=== PATIENT | female | born 1950 | race Caucasian/White ===

== ENCOUNTER → 2017-09-24 12:45 | Outpatient (CLI) | payer MEDICARE, OTHER, SELFPAY | PROVIDERS: Family Provider Family Medicine; PCP Family Medicine; Visit Provider Physician Assistant | DX: R30.0 Dysuria (principal) | CPT/HCPCS: 87086 ==

== ENCOUNTER → 2018-07-11 08:26 | Outpatient (CLI) | payer MEDICARE, OTHER, SELFPAY ==
[2018-07-11 09:49] LABS: Add Manual Diff / Slide Review NO; Basophils Absolute Auto 100 /uL (0-100); Basophils Percent Auto 0.8 % (0-2); Eosinophils Absolute Auto 200 /uL (0-450); Eosinophils Percent Auto 3.4 % (2-4); Hematocrit 42.4 % (36-46); Hemoglobin 14.3 g/dL (12.0-16.0); Lymphocytes Absolute Auto 2100 /uL (1100-4500); Lymphocytes Percent Auto 31.5 % (25-40); Mean Corpuscular HGB Conc 33.8 % (30-36); Mean Corpuscular Hemoglobin 30.6 PG (26-34); Mean Corpuscular Volume 90.4 fL (80-100); Monocytes Absolute Auto 400 /uL (0-900); Monocytes Percent Auto 5.7 % (3-14); Neutrophils Absolute Auto 3900 /uL (1500-7000); Neutrophils Percent Auto 58.6 % (50-75); Platelet Count 243 X10^3/uL (150-400); Red Blood Cell Count 4.69 X10^6/uL (4.0-5.2); Red Cell Distribution Width 14.2 % (11.6-14.8); White Blood Cell Count 6.6 X10^3/uL (4.5-11.0)
[2018-07-11 11:14] LABS: Alanine Aminotransferase 35 IU/L (9-52); Albumin 4.4 g/dL (3.5-5.0); Albumin Globulin Ratio 1.4 (1.0-2.8); Alkaline Phosphatase 67 U/L (38-126); Aspartate Aminotransferase 33 IU/L (14-36); BUN Creatinine Ratio 13.3 (6-22); Bilirubin Total 0.6 mg/dL (0.2-1.3); Blood Urea Nitrogen 12 mg/dL (7-17); Calcium 9.4 mg/dL (8.4-10.2); Carbon Dioxide 27 mmol/L (22-32); Chloride 105 mmol/L (98-107); Cholesterol 230 mg/dL (140-199); Estimated Glomerular Filt Rate > 60.0 mL/min (>60); Globulin 3.1 g/dL (1.7-4.1); Glucose 93 mg/dL (80-110); HDL Cholesterol 65 mg/dL (40-60); HEMOLYSIS < 15 (0-50); LDL Cholesterol Calculated 149 mg/dL (<100); Potassium 4.9 mmol/L (3.4-5.1); Sodium 138 mmol/L (137-145); Total Protein 7.5 g/dL (6.3-8.2); Triglycerides 78 mg/dL (35-150)
[2018-07-11 12:26] LABS: TSH w/ Reflex to FT4 2.04 uIU/mL (0.47-4.68)
== END ==
PROVIDERS: Family Provider Family Medicine; PCP Family Medicine; Visit Provider Family Medicine
DX: Z13.220 Encounter for screening for lipoid disorders (principal); E03.9 Hypothyroidism, unspecified; I10 Essential (primary) hypertension
CPT/HCPCS: 36415; 80053; 80061; 84443; 85025

== ENCOUNTER → 2018-08-07 13:56 | Outpatient (CLI) | payer MEDICARE, OTHER, SELFPAY ==
--- NOTE | 2018-08-07 13:58 | DI.MG.S_ITS ---
BILATERAL DIGITAL SCREENING MAMMOGRAM 3D/2D WITH CAD: 08/07/2018 CLINICAL: Routine screening. Comparison is made to exams dated: 03/05/2016 mammogram, 01/18/2011 mammogram, and 01/18/2011 [facility]. The tissue of both breasts is predominantly fatty. Current study was also evaluated with a Computer Aided Detection (CAD) system. No significant masses, calcifications, or other findings are seen in either breast. There has been no significant interval change. IMPRESSION: NEGATIVE There is no mammographic evidence of malignancy. A 1 year screening mammogram is recommended. This exam was interpreted at Station ID: [id number]. NOTE: For mammograms, a report in lay terms will be sent to the patient. Approximately 15% of breast malignancies will not be visualized mammographically. In the management of a palpable breast mass, a negative mammogram must not discourage biopsy of a clinically suspicious lesion. Electronically Signed By: Delfin mclean/melody:08/07/2018 16:53:08 letter sent: Normal Exam ACR BI-RADS Category 1: Negative 3341F
== END ==
PROVIDERS: Family Provider Family Medicine; PCP Family Medicine; Visit Provider Family Medicine
DX: Z12.31 Encounter for screening mammogram for malignant neoplasm of breast (principal); Z13.820 Encounter for screening for osteoporosis; M85.88 Other specified disorders of bone density and structure, other site; Z78.0 Asymptomatic menopausal state; Z90.722 Acquired absence of ovaries, bilateral
CPT/HCPCS: 77063; 77067; 77080

== ENCOUNTER → 2019-11-14 11:01 | Outpatient (CLI) | payer MEDICARE, OTHER, SELFPAY ==
[2019-11-14 12:25] LABS: Add Manual Diff / Slide Review NO; Basophils Absolute Auto 100 /uL (0-100); Basophils Percent Auto 0.5 % (0-2); Eosinophils Absolute Auto 100 /uL (0-450); Eosinophils Percent Auto 0.5 % (2-4); Hematocrit 44.3 % (36-46); Lymphocytes Absolute Auto 1100 /uL (1100-4500); Lymphocytes Percent Auto 10.9 % (25-40); Mean Corpuscular HGB Conc 33.8 % (30-36); Mean Corpuscular Hemoglobin 30.8 PG (26-34); Mean Corpuscular Volume 91.2 fL (80-100); Monocytes Absolute Auto 500 /uL (0-900); Monocytes Percent Auto 5.3 % (3-14); Neutrophils Absolute Auto 8500 /uL (1500-7000); Neutrophils Percent Auto 82.8 % (50-75); Platelet Count 244 X10^3/uL (150-400); Red Blood Cell Count 4.85 X10^6/uL (4.0-5.2); Red Cell Distribution Width 13.4 % (11.6-14.8); White Blood Cell Count 10.2 X10^3/uL (4.5-11.0)
[2019-11-14 13:06] LABS: Alanine Aminotransferase 81 IU/L (<35); Albumin 4.7 g/dL (3.5-5.0); Albumin Globulin Ratio 1.5 (1.0-2.8); Alkaline Phosphatase 86 U/L (38-126); Aspartate Aminotransferase 61 IU/L (14-36); BUN Creatinine Ratio 15.2 (6-22); Bilirubin Total 0.4 mg/dL (0.2-1.3); Blood Urea Nitrogen 12 mg/dL (7-17); Calcium 10.3 mg/dL (8.4-10.2); Carbon Dioxide 28 mmol/L (22-32); Chloride 106 mmol/L (98-107); Cholesterol 241 mg/dL (140-199); Estimated Glomerular Filt Rate > 60.0 mL/min (>60); Globulin 3.1 g/dL (1.7-4.1); Glucose 88 mg/dL (80-110); HDL Cholesterol 71 mg/dL (40-60); HEMOLYSIS < 15 (0-50); LDL Cholesterol Calculated 128 mg/dL (<100); Potassium 4.8 mmol/L (3.4-5.1); Sodium 141 mmol/L (137-145); Total Protein 7.8 g/dL (6.3-8.2); Triglycerides 209 mg/dL (35-150)
[2019-11-14 13:36] LABS: TSH w/ Reflex to FT4 1.32 uIU/mL (0.47-4.68)
== END ==
PROVIDERS: Family Provider Family Medicine; PCP Family Medicine; Referring Provider Family Medicine; Visit Provider Family Medicine
DX: R00.0 Tachycardia, unspecified (principal)
CPT/HCPCS: 36415; 80053; 80061; 84443; 85025

== ENCOUNTER → 2019-12-05 08:42 | Outpatient (CLI) | payer MEDICARE, OTHER, SELFPAY ==
--- NOTE | 2019-12-20 11:08 | P.HOLT.S_ITS ---
Wildfire Prevention Specialist Report Referral & Results Date Patient Seen: 12/05/19 Requesting provider: Rocco Venegas Indication: Tachycardia Duration of monitoring (days): 7 Diary information: There were 3 patient triggered events and 3 patient diary entries All 6 of these events were associated only with sinus rhythm (within 45 seconds) Data: Minimum heart rate identified was 50 beats per minute at 05:58 on 12/08/2019 Maximum sinus heart rate was 118 beats per minute at 11:43 on 12/06/2019 Maximum overall heart rate was 141 beats per minute at 05:27 on 12/08/2019 during a 37.2nd run of SVT/atrial tachycardia. Less than 1% of identified beats or either ventricular or supraventricular ectopic in origin Patient had only the 1 run of SVT/atrial tachycardia Impression: Relatively unremarkable 7 day cardiac/vascular sonographer. 1 run of accelerated supraventricular rhythm as above. Clinical correlation suggested
== END ==
PROVIDERS: Family Provider Family Medicine; PCP Family Medicine; Referring Provider Family Medicine; Visit Provider Family Medicine
DX: R00.0 Tachycardia, unspecified (principal)
CPT/HCPCS: 0296T; 0298T

== ENCOUNTER → 2020-07-22 11:28 | Outpatient (CLI) | payer MEDICARE, OTHER, SELFPAY | PROVIDERS: Family Provider Family Medicine; PCP Family Medicine; Visit Provider Physician Assistant | DX: N39.0 Urinary tract infection, site not specified (principal) | CPT/HCPCS: 87086 ==

== ENCOUNTER → 2020-07-25 08:41 | Outpatient (CLI) | payer MEDICARE, OTHER, SELFPAY ==
[2020-07-25 10:30] LABS: Alanine Aminotransferase 122 IU/L (<35); Albumin 4.5 g/dL (3.5-5.0); Albumin Globulin Ratio 1.6 (1.0-2.8); Alkaline Phosphatase 81 U/L (38-126); Aspartate Aminotransferase 94 IU/L (14-36); Bilirubin Total 0.4 mg/dL (0.2-1.3); Bilirubin Unconjugated 0.5 mg/dL (0.0-1.1); Cholesterol 234 mg/dL (140-199); Globulin 2.8 g/dL (1.7-4.1); HDL Cholesterol 59 mg/dL (40-60); HEMOLYSIS < 15 (0-50); LDL Cholesterol Calculated 147 mg/dL (<100); Total Protein 7.3 g/dL (6.3-8.2); Triglycerides 142 mg/dL (35-150)
== END ==
PROVIDERS: Family Provider Family Medicine; PCP Family Medicine; Referring Provider Family Medicine; Visit Provider Family Medicine
DX: E78.5 Hyperlipidemia, unspecified (principal); I10 Essential (primary) hypertension
CPT/HCPCS: 36415; 80061; 80076

== ENCOUNTER → 2020-08-01 08:38 | Outpatient (CLI) | payer MEDICARE, OTHER, SELFPAY ==
--- NOTE | 2020-08-01 09:08 | DI.US.S_ITS ---
PROCEDURE: US ABDOMEN COMPLETE INDICATIONS: ELEVATED LIVER FUNCTION TESTS TECHNIQUE: Real-time scanning was performed of the abdominal and retroperitoneal organs, with image documentation. COMPARISON: [facility], CT, ABDOMEN/PELVIS WITH CONTRAST, 02/28/2007, 10:15. [facility], US, ABDOMEN COMPLETE, 04/18/2014, 8:36. FINDINGS: Liver: Liver is normal in size and demonstrates a simple cyst measuring 7 mm on the right anteriorly. Gallbladder: Removed. Biliary ducts: Not well seen. Pancreas: Visualized portions of the pancreas are sonographically normal. Spleen: Spleen is normal in size and homogeneous in echotexture. Kidneys: Kidneys are normal in size and echotexture. Right kidney measures 11.7 cm long; left kidney measures 10.4 cm long. No hydronephrosis or nephrolithiasis. No solid masses. Left cortical thinning is noted. Within the left mid kidney, there is a 1 cm simple cyst. Areas of heterogeneity can be seen within the left kidney, without john masses or shadowing stones. Aorta: Visualized aorta is normal in caliber at less than 3 cm. Iliacs: Proximal common iliac arteries are normal in caliber at less than 2.5 cm. IVC: Intrahepatic inferior vena cava is patent. Miscellaneous: No free abdominal fluid. IMPRESSION: Liver within normal limits, with note made of a 7 mm simple cyst. Status post cholecystectomy. The biliary ducts are not well seen on this study. Left kidney cortical thinning can be seen. A 1 cm left kidney cyst can be seen. Dictated by: Chin Layne M.D. on 08/01/2020 at 10:29 Approved by: Chin Layne M.D. on 08/01/2020 at 10:33
[2020-08-01 10:20] LABS: Erythrocyte Sedimentation Rate 9 MM/HR (0-20)
[2020-08-01 10:38] LABS: C-Reactive Protein Quant 0.8 mg/dL (<1.0)
[2020-08-01 11:07] LABS: TSH w/ Reflex to FT4 1.36 uIU/mL (0.47-4.68)
[2020-08-01 11:11] LABS: Ferritin 57 ng/mL (11-264)
[2020-08-01 11:30] LABS: Appearance Urine UA CLEAR; Bacteria Urine None Seen; Bilirubin Urine UA NEGATIVE (NEGATIVE); Color Urine UA YELLOW; Glucose Urine UA NEGATIVE (Negative); Ketones Urine UA NEGATIVE (NEGATIVE); Leukocyte Esterase Urine UA TRACE (NEGATIVE); Nitrite Urine UA NEGATIVE (Negative); Occult Blood Urine UA 2+ (Negative); Protein Urine UA NEGATIVE (Negative); Urobilinogen Urine UA 0.2 E.U./dL (0.2); WBC Urine None Seen (0-5/HPF); pH Urine UA 5.5 (4.5-8.0)
[2020-08-01 11:36] LABS: Culture Indicated Urine Cult Not Indicated; RBC Urine 1-5/HPF (0-5/HPF)
== END ==
PROVIDERS: Family Provider Family Medicine; PCP Family Medicine; Referring Provider Family Medicine; Visit Provider Family Medicine
DX: R79.89 Other specified abnormal findings of blood chemistry (principal); R30.0 Dysuria; K76.89 Other specified diseases of liver; N28.1 Cyst of kidney, acquired; Z90.49 Acquired absence of other specified parts of digestive tract
CPT/HCPCS: 36415; 76700; 81003; 81015; 82728; 84443; 85651; 86140

== ENCOUNTER → 2021-03-31 10:07 | Outpatient (CLI) | payer MEDICARE, OTHER, SELFPAY ==
[2021-03-31 11:07] LABS: COVID19 -Nasal RAPID Negative (Negative)
== END ==
PROVIDERS: Family Provider Family Medicine; PCP Family Medicine; Visit Provider Physician Assistant
DX: Z20.822 Contact with and (suspected) exposure to COVID-19 (principal)
CPT/HCPCS: 87635

== ENCOUNTER → 2021-04-27 09:20 | Outpatient (CLI) | payer MEDICARE, OTHER, SELFPAY ==
--- NOTE | 2021-04-27 09:23 | DI.MG.S_ITS ---
BILATERAL DIGITAL SCREENING MAMMOGRAM 3D/2D WITH CAD: 04/27/2021 CLINICAL: Routine screening. Comparison is made to exams dated: 08/07/2018 mammogram, 03/05/2016 mammogram, and 01/18/2011 mammogram - [facility]. The tissue of both breasts is predominantly fatty. Current study was also evaluated with a Computer Aided Detection (CAD) system. No significant masses, calcifications, or other findings are seen in either breast. There has been no significant interval change. IMPRESSION: NEGATIVE There is no mammographic evidence of malignancy. A 1 year screening mammogram is recommended. This exam was interpreted at Station ID: [id number]. NOTE: For mammograms, a report in lay terms will be sent to the patient. Approximately 15% of breast malignancies will not be visualized mammographically. In the management of a palpable breast mass, a negative mammogram must not discourage biopsy of a clinically suspicious lesion. Electronically Signed By: Delfin mclean/melody:04/27/2021 10:52:12 letter sent: Normal Exam ACR BI-RADS Category 1: Negative 3341F
== END ==
PROVIDERS: Family Provider Family Medicine; PCP Family Medicine; Referring Provider Family Medicine; Visit Provider Family Medicine
DX: Z12.31 Encounter for screening mammogram for malignant neoplasm of breast (principal)
CPT/HCPCS: 77063; 77067

== ENCOUNTER → 2021-09-16 07:12 | Outpatient (CLI) | payer MEDICARE, OTHER, SELFPAY ==
[2021-09-16 07:54] LABS: Add Manual Diff / Slide Review NO; Basophils Absolute Auto 100 /uL (0-100); Basophils Percent Auto 0.9 % (0-2); Eosinophils Absolute Auto 100 /uL (0-450); Eosinophils Percent Auto 1.7 % (2-4); Hematocrit 40.8 % (36-46); Hemoglobin 13.9 g/dL (12.0-16.0); Lymphocytes Absolute Auto 2600 /uL (1100-4500); Lymphocytes Percent Auto 32.7 % (25-40); Mean Corpuscular Hemoglobin 28.9 PG (26-34); Mean Corpuscular Volume 85.2 fL (80-100); Monocytes Absolute Auto 500 /uL (0-900); Monocytes Percent Auto 5.7 % (3-14); Neutrophils Absolute Auto 4700 /uL (1500-7000); Platelet Count 236 X10^3/uL (150-400); Red Blood Cell Count 4.79 X10^6/uL (4.0-5.2); Red Cell Distribution Width 13.8 % (11.6-14.8); White Blood Cell Count 7.9 X10^3/uL (4.5-11.0)
[2021-09-16 08:25] LABS: HEMOLYSIS < 15 (0-50); Iron 74 ug/dL (37-170)
[2021-09-16 08:29] LABS: Alanine Aminotransferase 27 IU/L (<35); Albumin 4.2 g/dL (3.5-5.0); Albumin Globulin Ratio 1.4 (1.0-2.8); Alkaline Phosphatase 79 U/L (38-126); Aspartate Aminotransferase 26 IU/L (14-36); BUN Creatinine Ratio 19.1 (6-22); Bilirubin Total 0.5 mg/dL (0.2-1.3); Blood Urea Nitrogen 17 mg/dL (7-17); Calcium 9.2 mg/dL (8.4-10.2); Carbon Dioxide 28 mmol/L (22-32); Chloride 104 mmol/L (98-107); Cholesterol 230 mg/dL (140-199); Estimated Glomerular Filt Rate > 60 mL/min (>60); Globulin 2.9 g/dL (1.7-4.1); Glucose 102 mg/dL (80-110); HDL Cholesterol 55 mg/dL (40-60); HEMOLYSIS < 15 (0-50); LDL Cholesterol Calculated 149 mg/dL (<100); Potassium 4.6 mmol/L (3.4-5.1); Sodium 138 mmol/L (137-145); Total Protein 7.1 g/dL (6.3-8.2); Triglycerides 131 mg/dL (35-150)
[2021-09-16 08:36] LABS: Percent Iron Saturation 24 % (15-50); Total Iron Binding Capacity 312 ug/dL (265-497); Transferrin 237 mg/dL (206-381)
[2021-09-16 08:57] LABS: TSH w/ Reflex to FT4 2.97 uIU/mL (0.47-4.68)
[2021-09-16 09:02] LABS: Ferritin 63 ng/mL (11-264)
[2021-09-16 09:16] LABS: Vitamin B12 755 pg/mL (239-931)
[2021-09-16 09:23] LABS: Follicle Stimulating Hormone 69.7 mIU/mL; Luteinizing Hormone 29.3 mIU/mL; Progesterone, Total 0.97 ng/mL
[2021-09-16 10:05] LABS: Creatinine Urine Random 130.6 mg/dL; Microalbumi Creatinin Ratio Ur 5.3 ug/mg CR (<30); Microalbumin Urine Random 0.7 mg/dL (0-1.6)
[2021-09-19 16:41] LABS: Estrogen 144 pg/mL (40-244)
== END ==
PROVIDERS: Family Provider Family Medicine; PCP Family Medicine; Referring Provider Physician Assistant; Visit Provider Physician Assistant
DX: E89.40 Asymptomatic postprocedural ovarian failure (principal); R53.83 Other fatigue; I10 Essential (primary) hypertension; R23.2 Flushing; R61 Generalized hyperhidrosis; E78.2 Mixed hyperlipidemia
CPT/HCPCS: 36415; 80053; 80061; 82043; 82570; 82607; 82672; 82728; 83001; 83002; 83540; 83550; 84144; 84443; 85025

== ENCOUNTER → 2021-10-29 09:27 | Outpatient (CLI) | payer MEDICARE, OTHER, SELFPAY ==
[2021-10-29 13:37] LABS: Appearance Urine UA CLEAR; Bilirubin Urine UA NEGATIVE (NEGATIVE); Color Urine UA YELLOW; Glucose Urine UA NEGATIVE (Negative); Ketones Urine UA NEGATIVE (NEGATIVE); Leukocyte Esterase Urine UA TRACE (NEGATIVE); Nitrite Urine UA NEGATIVE (Negative); Occult Blood Urine UA 1+ (Negative); Protein Urine UA NEGATIVE (Negative); Specific Gravity Urine UA <=1.005 (1.000-1.035); Urobilinogen Urine UA 0.2 E.U./dL (0.2)
[2021-10-29 14:03] LABS: Bacteria Urine Few (2-10); RBC Urine 0-1/HPF (0-5/HPF); Squamous Epithelial Cell Urine 1-5 /HPF (0-5/HPF); WBC Urine 1-5/HPF (0-5/HPF)
[2021-10-29 14:04] LABS: Culture Indicated Urine Specimen Cultured
== END ==
PROVIDERS: Family Provider Family Medicine; PCP Family Medicine; Visit Provider Physician Assistant
DX: R31.9 Hematuria, unspecified (principal)
CPT/HCPCS: 81001; 87086

== ENCOUNTER → 2021-11-09 13:45 | Outpatient (CLI) | payer MEDICARE, OTHER, SELFPAY ==
--- NOTE | 2021-11-23 17:10 | PM.CARDMON.1 ---
Linen Room Attendant Report Referral & Results Date Patient Seen: 11/09/21 Requesting provider: Geovanna Smith Indication: Palpitations Duration of monitoring (days): 7 Diary information: There were 6 patient triggered events and 4 patient diary entries Patient diary entries were associated with sinus rhythm only Patient triggered events were associated with within 45 seconds) sinus rhythm as well as PACs and PVCs Data: Minimum heart rate identified was 41 beats per minute at 05:10 on 11/16/2021 Maximum heart rate identified was 102 beats per minute at 14:20 on 11/13/2021 Less than 1% of identified beats were ventricular or supraventricular ectopic in origin, which would classify them as rare. There were no pauses of 3 seconds or longer, episodes of atrial fibrillation or SVT identified on this study Impression: Essentially normal 6+ day cardiac specialist demonstrating rare PACs and PVCs No clear correlation between patient reported symptoms in any one dysrhythmia Clinical correlation suggested
== END ==
PROVIDERS: Family Provider Family Medicine; PCP Family Medicine; Referring Provider Physician Assistant; Visit Provider Physician Assistant
DX: R00.2 Palpitations (principal)
CPT/HCPCS: 93242; 93244

== ENCOUNTER → 2022-03-23 11:07 | Outpatient (CLI) | payer MEDICARE, OTHER, SELFPAY | PROVIDERS: Family Provider Family Medicine; PCP Family Medicine; Visit Provider Physician Assistant Medical | DX: J02.9 Acute pharyngitis, unspecified (principal) | CPT/HCPCS: 87070 ==

== ENCOUNTER → 2022-04-08 08:22 | Outpatient (CLI) | payer MEDICARE, OTHER, SELFPAY ==
[2022-04-08 10:42] LABS: Cholesterol 156 mg/dL (140-199); HDL Cholesterol 56 mg/dL (40-60); LDL Cholesterol Calculated 86 mg/dL (<100); Triglycerides 72 mg/dL (35-150)
== END ==
PROVIDERS: Family Provider Family Medicine; PCP Family Medicine; Referring Provider Physician Assistant; Visit Provider Physician Assistant
DX: E78.2 Mixed hyperlipidemia (principal)
CPT/HCPCS: 36415; 80061

== ENCOUNTER → 2022-10-20 11:06 | Outpatient (CLI) | payer MEDICARE, OTHER, SELFPAY ==
--- NOTE | 2022-10-20 | DI.MG.S_ITS ---
BILATERAL DIGITAL SCREENING MAMMOGRAM 3D/2D WITH CAD: 10/20/2022 CLINICAL: Routine screening. Comparison is made to exams dated: 04/27/2021 mammogram, 08/07/2018 mammogram, and 03/05/2016 mammogram - [facility]. Both breasts are almost entirely fatty (category a/<25% glandular tissue). Current study was also evaluated with a Computer Aided Detection (CAD) system. No significant masses, calcifications, or other findings are seen in either breast. There has been no significant interval change. IMPRESSION: NEGATIVE There is no mammographic evidence of malignancy. A 1 year screening mammogram is recommended. Based on the Tyrer Cuzick model (a risk assessment model) the patient's lifetime risk is 2.9% and her 10 year risk is 1.8%. According to the ACR, ACS, and NCCN guidelines, an annual breast MRI exam along with mammogram is recommended if the patient's lifetime risk is 20% or greater. This exam was interpreted at Station ID: [id number]. NOTE: For mammograms, a report in lay terms will be sent to the patient. Approximately 15% of breast malignancies will not be visualized mammographically. In the management of a palpable breast mass, a negative mammogram must not discourage biopsy of a clinically suspicious lesion. Electronically Signed By: Kristine du/melody:10/20/2022 11:47:13 letter sent: Normal Exam ACR BI-RADS Category 1: Negative 3341F
== END ==
PROVIDERS: Family Provider Family Medicine; PCP Family Medicine; Referring Provider Family Medicine; Visit Provider Family Medicine
DX: Z12.31 Encounter for screening mammogram for malignant neoplasm of breast (principal)
CPT/HCPCS: 77063; 77067

== ENCOUNTER → 2022-11-10 09:54 | Outpatient (CLI) | payer MEDICARE, OTHER, SELFPAY ==
[2022-11-10 11:16] LABS: Alanine Aminotransferase 56 IU/L (<35); Albumin 4.2 g/dL (3.5-5.0); Albumin Globulin Ratio 1.6 (1.0-2.8); Alkaline Phosphatase 76 U/L (38-126); Aspartate Aminotransferase 50 IU/L (14-36); BUN Creatinine Ratio 14.5 (6-22); Bilirubin Total 0.7 mg/dL (0.2-1.3); Blood Urea Nitrogen 12 mg/dL (7-17); Calcium 9.2 mg/dL (8.4-10.2); Carbon Dioxide 28 mmol/L (22-32); Chloride 104 mmol/L (98-107); Estimated Glomerular Filt Rate > 60 mL/min (>60); Globulin 2.7 g/dL (1.7-4.1); Glucose 100 mg/dL (80-110); HEMOLYSIS < 15 (0-50); Potassium 4.6 mmol/L (3.4-5.1); Sodium 139 mmol/L (137-145); Total Protein 6.9 g/dL (6.3-8.2)
[2022-11-10 11:20] LABS: High Sensitivity CRP - Cardiac 2.5 mg/L (1.0-3.0)
[2022-11-10 11:41] LABS: TSH w/ Reflex to FT4 0.96 uIU/mL (0.47-4.68)
[2022-11-11 05:13] LABS: Labcorp Hemoglobin (Hb) A1c 6.1 % (4.8-5.6)
[2022-11-13 08:09] LABS: Cholesterol, Total 154 mg/dL (100-199); HDL-Cholesterol 64 mg/dL (>39); HDL-Particle (Total) 42.1 umol/L (>=30.5); LDL Particle 794 nmol/L (<1000); LDL Size 21.1 nm (>20.5); LDL-Cholsterol 76 mg/dL (0-99); LP-IR Score 35 (<=45); Small LDL- Particle 461 nmol/L (<=527); Triglycerides 75 mg/dL (0-149)
== END ==
PROVIDERS: Family Provider Family Medicine; PCP Family Medicine; Referring Provider Physician Assistant; Visit Provider Physician Assistant
DX: I10 Essential (primary) hypertension; E78.5 Hyperlipidemia, unspecified; Z82.49 Family history of ischemic heart disease and other diseases of the circulatory system
CPT/HCPCS: 36415; 80053; 80061; 83036; 83704; 84443; 86140

== ENCOUNTER → 2023-06-09 08:06 | Outpatient (CLI) | payer MEDICARE, OTHER, SELFPAY ==
[2023-06-09 08:30] LABS: Hematocrit 41.5 % (36-46); Hemoglobin 13.9 g/dL (12.0-16.0)
[2023-06-09 08:41] LABS: Hemoglobin A1C% w Est Avg Glu 5.6 % (4.0-6.0)
[2023-06-09 09:05] LABS: HEMOLYSIS < 15 (0-50); Iron 80 ug/dL (37-170)
[2023-06-09 09:09] LABS: Alanine Aminotransferase 29 IU/L (<35); Albumin Globulin Ratio 1.3 (1.0-2.8); Alkaline Phosphatase 71 U/L (38-126); Aspartate Aminotransferase 30 IU/L (14-36); BUN Creatinine Ratio 16.9 (6-22); Bilirubin Total 0.7 mg/dL (0.2-1.3); Blood Urea Nitrogen 13 mg/dL (7-17); Calcium 9.2 mg/dL (8.4-10.2); Carbon Dioxide 26 mmol/L (22-32); Chloride 109 mmol/L (98-107); Estimated Glomerular Filt Rate > 60 mL/min (>60); Glucose 93 mg/dL (80-110); HEMOLYSIS < 15 (0-50); Magnesium 2.2 mg/dL (1.6-2.3); Potassium 4.5 mmol/L (3.4-5.1); Sodium 140 mmol/L (137-145)
[2023-06-09 09:16] LABS: Percent Iron Saturation 28 % (15-50); Total Iron Binding Capacity 288 ug/dL (265-497); Transferrin 242 mg/dL (206-381)
[2023-06-09 09:37] LABS: TSH w/ Reflex to FT4 2.47 uIU/mL (0.47-4.68); Testosterone 20.7 ng/dL (5.71-77.0)
[2023-06-09 09:54] LABS: Vitamin B12 764 pg/mL (239-931)
[2023-06-14 14:47] LABS: Estrogen 322 pg/mL (40-244)
== END ==
PROVIDERS: Family Provider Family Medicine; PCP Family Medicine; Referring Provider Physician Assistant; Visit Provider Physician Assistant
DX: R73.03 Prediabetes (principal); I10 Essential (primary) hypertension; E78.5 Hyperlipidemia, unspecified; R53.83 Other fatigue; L65.9 Nonscarring hair loss, unspecified; L30.9 Dermatitis, unspecified
CPT/HCPCS: 36415; 80053; 82607; 82672; 83036; 83540; 83550; 83735; 84403; 84443; 85014; 85018

== ENCOUNTER → 2023-06-10 15:38 | Outpatient (CLI) | payer MEDICARE, OTHER, SELFPAY ==
[2023-06-10 16:06] LABS: Cholesterol 235 mg/dL (140-199); HDL Cholesterol 53 mg/dL (40-60); LDL Cholesterol Calculated 156 mg/dL (<100); Triglycerides 128 mg/dL (35-150)
== END ==
PROVIDERS: Family Provider Family Medicine; PCP Family Medicine; Visit Provider Physician Assistant
DX: R73.03 Prediabetes (principal); E78.2 Mixed hyperlipidemia
CPT/HCPCS: 80061

== ENCOUNTER → 2023-07-22 08:18 | Outpatient (CLI) | payer MEDICARE, OTHER, SELFPAY ==
[2023-07-22 10:31] LABS: Cholesterol 171 mg/dL (140-199); HDL Cholesterol 67 mg/dL (40-60); LDL Cholesterol Calculated 82 mg/dL (<100); Triglycerides 110 mg/dL (35-150)
[2023-07-22 11:01] LABS: Testosterone 15.7 ng/dL (5.71-77.0)
[2023-07-29 15:06] LABS: Estrogen 275 pg/mL (40-244)
== END ==
PROVIDERS: Family Provider Family Medicine; PCP Family Medicine; Referring Provider Physician Assistant; Visit Provider Physician Assistant
DX: E78.2 Mixed hyperlipidemia (principal); L65.9 Nonscarring hair loss, unspecified; E89.40 Asymptomatic postprocedural ovarian failure; R53.83 Other fatigue; E28.0 Estrogen excess
CPT/HCPCS: 36415; 80061; 82672; 84403

== ENCOUNTER → 2023-08-17 11:14 | Outpatient (CLI) | payer MEDICARE, OTHER, SELFPAY ==
--- NOTE | 2023-08-17 11:15 | DI.RAD.S_ITS ---
PROCEDURE: XR DEXA AXIAL SKELETON INDICATIONS: Osteopenia - surgical menopause COMPARISON: [facility], CR, XR DEXA AXIAL SKELETON, 08/07/2018, 14:32. FINDINGS: Lumbar Spine: Bone mineral density 0.772 g/cm2, T score -2.2, osteopenia. Left Hip: Bone mineral density 0.834 g/cm2, T score -0.9, normal. Left Femoral Neck: Bone mineral density 0.656 g/cm2, T score -1.7, osteopenia. Right Hip: Bone mineral density 0.836 g/cm2, T score -0.9, osteopenia. Right Femoral Neck: Bone mineral density 0.641 g/cm2, T score -1.9, osteopenia. Fracture Risk Calculation (when applicable): 10-year fracture risk of a major osteoporotic fracture 18% and of a hip fracture 5.2%. (T score greater or equal to -1.0 to: NORMAL) (T score from -1.1 to -2.4: OSTEOPENIA) (T score less than or equal to -2.5: OSTEOPOROSIS) IMPRESSION: 1. Based on WHO criteria the patient has osteopenia and increased fracture risk. 2. Because of dissimilar scan types or analysis methods, cannot assess statistical significance of differences in bone mineral densities between the current exam and the last examination. Follow-up guidelines as follows: Osteoporosis: Consider a repeat DEXA and Vertebral Fracture Assessment (VFA) exam in 2 years or sooner if medically necessary, to reassess this patient's status. Osteopenia: Consider a repeat DEXA in 2-3 years to reassess this patient's status, or if there is a new clinical indication. Normal: Consider a repeat DEXA in 5 years or sooner, or if there is a new clinical indication. Dictated by: Varun Moon M.D. on 08/17/2023 at 12:27 Approved by: Varun Moon M.D. on 08/17/2023 at 12:32
== END ==
PROVIDERS: Family Provider Family Medicine; PCP Family Medicine; Referring Provider Physician Assistant; Visit Provider Physician Assistant
DX: Z78.0 Asymptomatic menopausal state (principal); M85.89 Other specified disorders of bone density and structure, multiple sites; E89.40 Asymptomatic postprocedural ovarian failure
CPT/HCPCS: 77080

== ENCOUNTER → 2023-08-19 06:32 | Outpatient (CLI) | payer MEDICARE, OTHER, SELFPAY ==
--- NOTE | 2023-08-19 06:34 | DI.US.S_ITS ---
PROCEDURE: US PELVIC COMPLETE INDICATIONS: Elevated estrogen level unknown cause; surgical menopause TECHNIQUE: Real-time scanning was performed of the pelvic organs, with image documentation. Additional endovaginal scanning was necessary due to incomplete visualization of the adnexal and endometrial structures by transabdominal scanning. COMPARISON: None. FINDINGS: Uterus: Surgically absent. Ovaries: Surgically absent. No adnexal masses are seen. Other: No pathologic free abdominal or pelvic fluid. IMPRESSION: Status post hysterectomy and bilateral salpingo-oophorectomy. No adnexal masses are seen. We strive to produce accurate, complete, and clear reports of imaging services. To assist us in improving patient care, this report was composed using standard report templates and voice recognition software. Therefore, it may contain abnormal punctuation, insertions and/or omissions. Occasional wrong-word or sound-alike substitutions may occur. Though we review the report and make efforts to correct it, we do recommend that the report be read carefully in proper context to recognize any text inaccuracies. Dictated by: Salvador Oseguera M.D. on 08/19/2023 at 9:03 Approved by: Salvador Oseguera M.D. on 08/19/2023 at 9:05
== END ==
PROVIDERS: Family Provider Family Medicine; PCP Family Medicine; Referring Provider Physician Assistant; Visit Provider Physician Assistant
DX: E28.0 Estrogen excess (principal); E89.40 Asymptomatic postprocedural ovarian failure; Z90.710 Acquired absence of both cervix and uterus; Z90.722 Acquired absence of ovaries, bilateral
CPT/HCPCS: 76830; 76856

== ENCOUNTER → 2023-09-01 08:21 | Outpatient (CLI) | payer MEDICARE, OTHER, SELFPAY ==
--- NOTE | 2023-09-01 08:22 | DI.US.S_ITS ---
PROCEDURE: US ABDOMEN LIMITED INDICATIONS: FOLLOW-UP LIVER CYST TECHNIQUE: Real-time scanning was performed of the abdominal and retroperitoneal organs, with image documentation. COMPARISON: , US, US ABDOMEN COMPLETE, 08/01/2020, 9:27. FINDINGS: Liver: Liver is normal in size and homogeneous in echotexture. Redemonstration of right hepatic lobe simple cyst measuring 0.7 x 0.7 x 0.8 cm. Gallbladder: Surgically absent Biliary ducts: Intrahepatic bile ducts are non-dilated. Extrahepatic bile duct caliber measures 9 mm. Normal is 6-7 mm or less in diameter, or 10 mm or less post-cholecystectomy. Pancreas: Visualized portions of the pancreas are sonographically normal. Miscellaneous: No free abdominal fluid. IMPRESSION: Persistent simple right hepatic lobe cyst measuring up to 0.8 cm in size, previously measuring up to 0.7 cm. Findings are overall not significantly changed. Dictated by: Delfin Melo M.D. on 09/01/2023 at 17:13 Approved by: Delfin Melo M.D. on 09/01/2023 at 17:15
== END ==
LOC: US 08:22
PROVIDERS: Family Provider Family Medicine; PCP Family Medicine; Referring Provider Physician Assistant; Visit Provider Physician Assistant
DX: K76.89 Other specified diseases of liver (principal); E28.0 Estrogen excess; Z90.49 Acquired absence of other specified parts of digestive tract
CPT/HCPCS: 76705

== ENCOUNTER → 2023-09-13 12:27 | Outpatient (CLI) | payer MEDICARE, OTHER, SELFPAY ==
[2023-09-13 15:56] LABS: Follicle Stimulating Hormone 64.1 mIU/mL; Luteinizing Hormone 22.1 mIU/mL; Progesterone, Total 0.38 ng/mL
[2023-09-15 11:30] LABS: Prolactin 9.4 ng/mL (3.0-18.6)
[2023-09-16 22:41] LABS: Estrogen 92 pg/mL (40-244)
== END ==
PROVIDERS: Family Provider Family Medicine; PCP Family Medicine; Referring Provider Physician Assistant; Visit Provider Physician Assistant
DX: E28.0 Estrogen excess (principal); E89.40 Asymptomatic postprocedural ovarian failure
CPT/HCPCS: 36415; 82672; 83001; 83002; 84144; 84146

== ENCOUNTER → 2023-10-14 15:28 | Outpatient (CLI) | payer MEDICARE, OTHER, SELFPAY ==
--- NOTE | 2023-10-14 15:30 | DI.RAD.S_ITS ---
PROCEDURE: XR KNEE LT 3V INDICATIONS: left knee pain TECHNIQUE: 3 views of the knee were acquired. COMPARISON: None. FINDINGS: Bones: No fractures or dislocations. No suspicious bony lesions. Soft tissues: No joint effusion. No suspicious soft tissue calcifications. IMPRESSION: No acute bony abnormality or significant effusion. Moderate osteoarthritis but no trauma. Dictated by: Dagoberto Jack M.D. on 10/14/2023 at 16:20 Approved by: Dagoberto Jack M.D. on 10/14/2023 at 16:20
== END ==
PROVIDERS: Family Provider Family Medicine; PCP Family Medicine; Referring Provider Family Medicine; Visit Provider Family Medicine
DX: M17.12 Unilateral primary osteoarthritis, left knee (principal)
CPT/HCPCS: 73562

== ENCOUNTER → 2023-11-02 10:42 | Outpatient (CLI) | payer MEDICARE, OTHER, SELFPAY ==
--- NOTE | 2023-11-02 | DI.MG.S_ITS ---
BILATERAL DIGITAL SCREENING MAMMOGRAM 3D/2D WITH CAD: 11/02/2023 CLINICAL: Routine screening. Comparison is made to exams dated: 10/20/2022 mammogram, 04/27/2021 mammogram, and 08/07/2018 mammogram - [facility]. Both breasts are almost entirely fatty (category a/<25% glandular tissue). Current study was also evaluated with a Computer Aided Detection (CAD) system. No significant masses, calcifications, or other findings are seen in either breast. There has been no significant interval change. IMPRESSION: NEGATIVE There is no mammographic evidence of malignancy. A 1 year screening mammogram is recommended. Based on the Tyrer Cuzick model (a risk assessment model) the patient's lifetime risk is 2.7% and her 10 year risk is 1.9%. According to the ACR, ACS, and NCCN guidelines, an annual breast MRI exam along with mammogram is recommended if the patient's lifetime risk is 20% or greater. This exam was interpreted at Station ID: [id number]. NOTE: For mammograms, a report in lay terms will be sent to the patient. Approximately 15% of breast malignancies will not be visualized mammographically. In the management of a palpable breast mass, a negative mammogram must not discourage biopsy of a clinically suspicious lesion. Electronically Signed By: Carl richards/melody:11/02/2023 11:03:19 letter sent: Normal Exam ACR BI-RADS Category 1: Negative 3341F
== END ==
PROVIDERS: Family Provider Family Medicine; PCP Family Medicine; Referring Provider Family Medicine; Visit Provider Family Medicine
DX: Z12.31 Encounter for screening mammogram for malignant neoplasm of breast (principal); R92.313 Mammographic fatty tissue density, bilateral breasts
CPT/HCPCS: 77063; 77067

== ENCOUNTER → 2023-11-05 09:04 | Outpatient (CLI) | payer MEDICARE, OTHER, SELFPAY | PROVIDERS: Family Provider Family Medicine; PCP Family Medicine; Visit Provider Registered Nurse | DX: R30.0 Dysuria (principal) | CPT/HCPCS: 87086 ==

== ENCOUNTER → 2024-05-09 07:54 | Outpatient (CLI) | payer MEDICARE, OTHER, SELFPAY ==
[2024-05-09 08:56] LABS: Add Manual Diff / Slide Review NO; Basophils Absolute Auto 100 /uL (0-100); Basophils Percent Auto 0.8 % (0-2); Eosinophils Absolute Auto 200 /uL (0-450); Eosinophils Percent Auto 2.3 % (2-4); Hematocrit 42.2 % (36-46); Hemoglobin 14.1 g/dL (12.0-16.0); Lymphocytes Absolute Auto 2400 /uL (1100-4500); Lymphocytes Percent Auto 30.8 % (25-40); Mean Corpuscular HGB Conc 33.4 % (30-36); Mean Corpuscular Hemoglobin 29.9 PG (26-34); Mean Corpuscular Volume 89.6 fL (80-100); Monocytes Absolute Auto 400 /uL (0-900); Monocytes Percent Auto 5.2 % (3-14); Neutrophils Absolute Auto 4600 /uL (1500-7000); Neutrophils Percent Auto 60.9 % (50-75); Platelet Count 237 X10^3/uL (150-400); Red Blood Cell Count 4.71 X10^6/uL (4.0-5.2); Red Cell Distribution Width 13.4 % (11.6-14.8); White Blood Cell Count 7.6 X10^3/uL (4.5-11.0)
[2024-05-09 09:04] LABS: Hemoglobin A1C% w Est Avg Glu 5.6 % (4.0-6.0)
[2024-05-09 09:21] LABS: Alanine Aminotransferase 38 IU/L (<35); Albumin 4.4 g/dL (3.5-5.0); Albumin Globulin Ratio 1.7 (1.0-2.8); Alkaline Phosphatase 68 U/L (38-126); Aspartate Aminotransferase 36 IU/L (14-36); BUN Creatinine Ratio 14.8 (6-22); Bilirubin Total 0.5 mg/dL (0.2-1.3); Blood Urea Nitrogen 13 mg/dL (7-17); Calcium 9.2 mg/dL (8.4-10.2); Carbon Dioxide 26 mmol/L (22-32); Chloride 106 mmol/L (98-107); Cholesterol 146 mg/dL (140-199); Estimated Glomerular Filt Rate > 60 mL/min (>60); Globulin 2.6 g/dL (1.7-4.1); Glucose 90 mg/dL (80-110); HDL Cholesterol 65 mg/dL (40-60); HEMOLYSIS < 15 (0-50); LDL Cholesterol Calculated 58 mg/dL (<100); Potassium 4.5 mmol/L (3.4-5.1); Sodium 139 mmol/L (137-145); Triglycerides 116 mg/dL (35-150)
[2024-05-09 09:47] LABS: TSH w/ Reflex to FT4 2.21 uIU/mL (0.47-4.68)
== END ==
PROVIDERS: Family Provider Family Medicine; PCP Family Medicine; Referring Provider Family Medicine; Visit Provider Family Medicine
DX: E78.5 Hyperlipidemia, unspecified (principal); R73.01 Impaired fasting glucose; I10 Essential (primary) hypertension
CPT/HCPCS: 36415; 80053; 80061; 83036; 84443; 85025

== ENCOUNTER 2025-02-21 15:24 | Emergency (ER) | payer MEDICARE, OTHER, SELFPAY ==
[2025-02-21 15:47] VITALS: BP 164/82; PULSE 77; RESP 16; TEMP 37.1; O2SAT 99; BMI 29.0
[2025-02-21 16:03] VITALS: BP 144/79
[2025-02-21 16:12] VITALS: PULSE 83; O2SAT 93
[2025-02-21 16:15] VITALS: BP 160/81; PULSE 75; RESP 13; O2SAT 98
[2025-02-21 16:30] VITALS: BP 152/72; PULSE 71; RESP 14; O2SAT 97
--- NOTE | 2025-02-21 16:34 | PC.NURSE ---
pt reporting having hx of htn and now has broken blood vessel to left eye which prompted her to check her bp at home. systolic 140 at home. reports head pressure
--- NOTE | 2025-02-21 16:35 | PC.NURSE ---
denies visual changes
--- NOTE | 2025-02-21 16:39 | ED.GENADULT ---
HPI - General Adult General Chief complaint: Hypertension Stated complaint: High BP, Pressure in head, eye burst vessel Time Seen by Provider: 02/21/25 16:32 Source: patient Mode of arrival: Ambulatory History of Present Illness HPI narrative: This is a 74-year-old female presents emergency department due to headaches for the last couple of days. States she is concerned as she has noticed that her blood pressure readings have been slightly elevated with systolics in the 140s which is abnormal for her. She has been taking her amlodipine and losartan as prescribed. She also reports that she developed a bleed to her left eye. Denies any chest pain, shortness breath, nausea, vomiting, or any other concerning signs or symptoms. Related Data Home Medications ?Medication ?Instructions ?Recorded ?Confirmed clobetasol 0.05 % scalp solution 1 applic topical DAILY 08/10/23 10/03/23 meloxicam 7.5 mg tablet 7.5 mg PO DAILY 11/05/23 11/05/23 valacyclovir 500 mg tablet 500 mg PO DAILY 11/05/23 11/05/23 hydroxychloroquine 200 mg tablet 200 mg PO BID 02/21/25 02/21/25 Previous Rx's ?Medication ?Instructions ?Recorded epinephrine 0.3 mg/0.3 mL 0.3 mg (0.3 mL) IM Q5-15M PRN 08/10/23 injection, auto-injector hypersensitivity reaction #2 ea estradiol 10 mcg vaginal tablet 10 mcg vaginal 2XW #30 tabs 03/14/24 amlodipine 5 mg tablet (Norvasc) 5 mg PO DAILY #90 tabs 08/20/24 ruxolitinib 1.5 % topical cream 1 applic topical BID #60 grams 08/20/24 (Opzelura) rosuvastatin 5 mg tablet 5 mg PO DAILY for cholesterol #90 09/24/24 tabs losartan 50 mg tablet 50 mg PO DAILY #90 tabs 10/02/24 minoxidil 2.5 mg tablet 1.25 mg (1/2 x 2.5 mg) PO DAILY 12/11/24 #30 tabs Allergies Allergy/AdvReac Type Severity Reaction Status Date / Time sertraline (SERTRALINE) Allergy Severe Rash Verified 02/21/25 15:47 Sulfa (Sulfonamide Allergy Severe Rash Verified 02/21/25 15:47 Antibiotics) (SULFA (SULFONAMIDE ANTIBIOTICS)) onion Allergy Intermediate Verified 02/21/25 15:47 silk (SILK) Allergy Intermediate Blisters Verified 02/21/25 15:47 atenolol (ATENOLOL) AdvReac Intermediate Chest pain Verified 02/21/25 15:47 yellow jacket venom Allergy Unknown Uncoded 02/21/25 15:47 Review of Systems Review of Systems Narrative: GENERAL: Denies chills, fatigue, malaise, fever, sweats. HEENT: Reports headache Denies sinus pain, ear pain, sore throat, difficulty swallowing, dizziness. RESPIRATORY: Denies dyspnea, cough, wheezing, hemoptysis, sputum. CARDIOVASCULAR: Denies chest pain, palpitations, orthopnea, edema, GASTROINTESTINAL: Denies nausea, vomiting, abdominal pain, diarrhea, constipation, melena. : Denies dysuria, frequency, incontinence, hematuria, urinary retention. MUSCULOSKELETAL: denies weakness, joint pain, or bony pain SKIN: Denies rash, skin lesions, or other NEUROLOGIC: Denies weakness, headache, numbness, change in speech, confusion, seizures, incoordination. PSYCHIATRIC: No concerning psychosocial issues. 12 point review of systems is negative except for those stated above Patient History Medical History History of primary hypertension Tachycardia Surgical History Status post breast reduction Status post cholecystectomy Status post hysterectomy Family History Child Age: 40 Hypertension Mother Age: 88 Stroke Pacemaker Social History marital status: Smoking Status: Former smoker alcohol intake: current (ON OCCASION ) substance use type: does not use Smoking Status: Former smoker tobacco type: cigars Exam Narrative Exam Narrative: GENERAL: Well-developed patient, in mild distress. HEAD: Atraumatic. Normocephalic. EYES: Pupils equal round and reactive. Extraocular motions intact. No scleral icterus. No injection or drainage. ENT: Nose without bleeding, purulent drainage. Throat without erythema, tonsillar hypertrophy or exudate. Airway patent. NECK: Trachea midline. Non tender EXTREMITIES: No edema or joint tenderness. NEURO: AOx3. Cranial nerves 2-12 intact SKIN: No rash or erythema of visible areas Initial Vital Signs Initial Vital Signs: Vital Signs Temperature 98.8 F 02/21/25 15:47 Pulse Rate 77 02/21/25 15:47 Respiratory Rate 16 02/21/25 15:47 Blood Pressure 164/82 H 02/21/25 15:47 Pulse Oximetry 99 02/21/25 15:47 Oxygen Delivery Method Room Air 02/21/25 15:47 Course Orders Ordered: ED Orders 02/21/25 16:46 CT head/brain wo con Stat Vital Signs Vital signs: Vital Signs - 8 hr 02/21/25 15:47 02/21/25 16:03 02/21/25 16:12 Temperature 98.8 F Pulse Rate 77 83 Respiratory Rate 16 Blood Pressure 164/82 H 144/79 H Pulse Oximetry 99 93 Oxygen Delivery Method Room Air 02/21/25 16:15 02/21/25 16:15 02/21/25 16:30 Temperature Pulse Rate 75 Respiratory Rate 13 Blood Pressure 160/81 H 152/72 H Pulse Oximetry 98 Oxygen Delivery Method 02/21/25 16:30 02/21/25 17:00 Temperature Pulse Rate 71 71 Respiratory Rate 14 15 Blood Pressure Pulse Oximetry 97 97 Oxygen Delivery Method Medical Decision Making Imaging Data CT scan - head: Radiologist's Impression: [place] [id number] CT Scan Report Signed Patient: Ellie Reed MR#: [id number] : 1950 Acct:[id number] Age/Sex: 74 / F Date of Service: 02/21/25 Loc: ED Accession Number: [id number] Procedure: CT head/brain wo con Ordering Provider: Placido Ferris PA-C PROCEDURE: CT HEAD/BRAIN WO CON INDICATIONS: Headache, elevated BP TECHNIQUE: Noncontrast 4.5 mm thick angled axial sections acquired from the foramen magnum to the vertex, with coronal and sagittal reformats. For radiation dose reduction, the following was used: automated exposure control, adjustment of mA and/or kV according to patient size. COMPARISON: None. FINDINGS: Image quality: Diagnostic. CSF spaces: Basal cisterns are patent. No extra-axial fluid collections. The ventricles are symmetric in size and shape. Brain: No intracranial bleeds or mass effect. There is cerebral volume loss, with resultant ventricular and sulcal prominence. There are periventricular and deep white matter chronic small vessel ischemic changes. There is intracranial internal carotid artery atherosclerosis. Skull and face: Calvarium and visualized facial bones appear intact, without suspicious lesions. Sinuses: Visualized sinuses and mastoids are clear. IMPRESSION: No acute intracranial pathology. Dictated by: Salvador Oseguera M.D. on 02/21/2025 at 17:00 Approved by: Salvador Oseguera M.D. on 02/21/2025 at 17:01 [facility] Narrative Medical decision making narrative: ED course: This is a 74-year-old female presents to emergency department due to headaches for the last couple of days as well as reports of elevated blood pressure readings with a systolic in the 140s. Today on exam she had no acute neuro findings but shared decision-making utilized and CT head ordered which was unremarkable. She is not describing any chest pain shortness of breath we need any further testing or workup. Recommended she follow up with the primary care provider for possible adjusting of her home blood pressure medications for better blood pressure control. CC: Headaches Complicating co-morbidities: History of hypertension Data collected from: Previous notes Medical records reviewed: Patient Has not been to this ED in the past. has seen Dr. Saavedra with a director of cardiac rehabilitation due to palpitations. Demonstrating rare PACs and PVCs. Patient was seen earlier today at the walk-in clinic regarding head pressure and slightly elevated BP he has. Headache neck pain for 2 days heart palpitations this morning. Also has a conjunctival hemorrhage. Differential considered, but not limited to: Intracranial bleed, subarachnoid hemorrhage, ischemic stroke Exam documented above, pertinent findings include: Reassuring neuro exam Lab Test results independently reviewed as above. Pertinent findings: None obtained Imaging studies independently reviewed: CT head no unremarkable Scores Used: None MIPS Elements: None Consultations: None Treatments: None Re-evaluations: None Discussion: Discussed plan with the patient was comfortable with the plan Diagnosis: Elevated blood pressure Disposition: see below, along with detailed discharge instructions that have been reviewed with patient as well as indications for ED re-evaluation and additional outpatient follow up Discharge Plan Departure Patient Disposition: Home Clinical Impression: Elevated blood pressure reading Activity Restrictions/Additional Instructions: Thank you for coming to the [facility] Emergency Department today. The CT head showed no evidence of intracranial bleeding. I suspect the symptoms you are experiencing maybe due to slightly elevated blood pressure values. Recommended he speak with the primary care provider for possible increasing of your home blood pressure medications. Your exam today was very reassuring. Please return to the emergency department if you develop any [ ] or any other concerning signs or symptoms. I hope you feel better soon. Please follow up with your primary care provider within a week if your symptoms continue. If you do not have a primary care provider please contact the [facility] Resource line at [phone]. They will ask some questions about your medical history and help you get set up with a provider in the community. Prescriptions: No Action meloxicam 7.5 mg tablet 7.5 mg PO DAILY valacyclovir 500 mg tablet 500 mg PO DAILY hydroxychloroquine 200 mg tablet 200 mg PO BID estradiol 10 mcg tablet 10 mcg vaginal 2XW Qty: 30 3RF rosuvastatin 5 mg tablet 5 mg PO DAILY Qty: 90 3RF losartan 50 mg tablet 50 mg PO DAILY Qty: 90 2RF minoxidil 2.5 mg tablet 1.25 mg PO DAILY Qty: 30 6RF Opzelura 1.5 % cream 1 applic topical BID Qty: 60 0RF amlodipine [Norvasc] 5 mg tablet 5 mg PO DAILY Qty: 90 3RF clobetasol 0.05 % solution 1 applic topical DAILY epinephrine 0.3 mg/0.3 mL auto-injector 0.3 mg IM Q5-15M PRN (Reason: hypersensitivity reaction) Qty: 2 1RF Rx Instructions: do not exceed 3 doses per episode Referrals: Rocco Venegas MD [Primary Care Provider, Family Practice] Stand Alone Forms: Patient Portal/API
--- NOTE | 2025-02-21 16:46 | DI.CT.S_ITS ---
PROCEDURE: CT HEAD/BRAIN WO CON INDICATIONS: Headache, elevated BP TECHNIQUE: Noncontrast 4.5 mm thick angled axial sections acquired from the foramen magnum to the vertex, with coronal and sagittal reformats. For radiation dose reduction, the following was used: automated exposure control, adjustment of mA and/or kV according to patient size. COMPARISON: None. FINDINGS: Image quality: Diagnostic. CSF spaces: Basal cisterns are patent. No extra-axial fluid collections. The ventricles are symmetric in size and shape. Brain: No intracranial bleeds or mass effect. There is cerebral volume loss, with resultant ventricular and sulcal prominence. There are periventricular and deep white matter chronic small vessel ischemic changes. There is intracranial internal carotid artery atherosclerosis. Skull and face: Calvarium and visualized facial bones appear intact, without suspicious lesions. Sinuses: Visualized sinuses and mastoids are clear. IMPRESSION: No acute intracranial pathology. Dictated by: Salvador Oseguera M.D. on 02/21/2025 at 17:00 Approved by: Salvador Oseguera M.D. on 02/21/2025 at 17:01
[2025-02-21 17:00] VITALS: PULSE 71; RESP 15; O2SAT 97
== END 2025-02-21 17:17 | disposition home or self-care (01) ==
PROVIDERS: Emergency Provider Physician Assistant Medical; PCP Family Medicine
DX: I10 Essential (primary) hypertension (principal); R51.9 Headache, unspecified; Z87.891 Personal history of nicotine dependence
CPT/HCPCS: 70450; 99281; 99284

== ENCOUNTER → 2025-03-15 07:34 | Outpatient (CLI) | payer MEDICARE, OTHER, SELFPAY ==
[2025-03-15 08:23] LABS: Alanine Aminotransferase 28 IU/L (<35); Albumin 4.5 g/dL (3.5-5.0); Albumin Globulin Ratio 1.5 (1.0-2.8); Alkaline Phosphatase 70 U/L (38-126); Globulin 3.1 g/dL (1.7-4.1); HEMOLYSIS < 15 (0-50); Total Protein 7.6 g/dL (6.3-8.2)
[2025-03-15 08:40] LABS: Vitamin D 25 Hydroxy (D3) 29.3 ng/mL (30.0-100.0)
[2025-03-15 09:14] LABS: Vitamin B12 759 pg/mL (239-931)
== END ==
PROVIDERS: PCP Family Medicine; Referring Provider Family Medicine; Visit Provider Family Medicine
DX: R79.89 Other specified abnormal findings of blood chemistry (principal); I10 Essential (primary) hypertension; N95.2 Postmenopausal atrophic vaginitis; E89.40 Asymptomatic postprocedural ovarian failure; D51.8 Other vitamin B12 deficiency anemias
CPT/HCPCS: 36415; 80076; 82306; 82607; 82672